=== PATIENT | female | born 1990 | race Caucasian/White ===

== ENCOUNTER 2018-01-31 13:25 | Emergency (ER) | payer OTHER, SELFPAY ==
[2018-01-31 13:28] VITALS: BP 130/67; PULSE 91; RESP 18; TEMP 37.2; O2SAT 100
--- NOTE | 2018-01-31 13:59 | W.ED.GENAD ---
Discharge Plan Disposition Patient Disposition: HOME Condition: Good Discharge Details Chief Complaint: Chest Pain Clinical Impression: Bronchitis Primary Care Provider: VALENTE PETERSON ED Provider: Francisco Desai Home Meds and New Rx's Prescriptions: New azithromycin 250 mg tablet 250 mg PO DAILY Qty: 4 RF: 0 prednisone 20 mg tablet 40 mg PO DAILY Qty: 8 RF: 0 Continue levonorgestrel [Mirena] 1 EACH intrauterine device 1 ea Intrauterine ONCE Qty: 1 RF: 0 multivitamin [Daily Multiple] 1 EACH tablet 1 ea PO DAILY RF: 0 Lactobacillus acidophilus [Probiotic] 1 EACH capsule 1 ea PO DAILY RF: 0 valacyclovir 500 MG tablet 500 mg PO DAILY Qty: 90 RF: 4 valacyclovir 1 gram tablet 1,000 mg PO BID Qty: 6 RF: 6 Discharge Instructions Instructions: Acute Bronchitis (ED) Additional Instructions: Return immediately to the emergency department if not improving in the next 24-48 hours. Otherwise take your medication as prescribed. Referrals: VALENTE PETERSON [Primary Care Provider] - Discharge Data Discharge Date/Time-TO BE ENTERED AT DEPARTURE: 01/31/18 16:25 Medical Decision Making Patient presenting to the emergency department for complaint of chest pain. Patient reports for the past 2 weeks she has had cough and cold symptoms. Beginning yesterday she started having mild left-sided chest pain that worsens with deep inspiration and cough. Today the pain continued and seem to slightly worsened. She does state more of a productive cough over the last 2 days as well. Patient denies any known fever but does state malaise. Nasal congestion. Patient's vital signs were reviewed and patient is oxygenating well with only very mild tachycardia. Plan to do radiological imaging of the chest for concern of possible pneumonia secondary to URI. Patient is otherwise stable. While ACS and PE are considered I feel that this is highly unlikely given patient's recent illness that seemed to worsen so mainly concern for infectious nature. We will continue to monitor and reassess. After review of radiological imaging that shows radiologist notation of mildly hyperinflated lungs consistent with possible reactive airway disease or deep inspiratory effect patient reassessed. Patient states no new or worsening symptoms and vital signs remained stable with heart rate seen in 80s and O2 saturation of 97-98%. Given this I am concerned for more of a bronchitis type situation but with patient being an intermittent smoker and worsening I do feel patient would benefit from antibiotic therapy as well. Given patient otherwise low risk patient placed upon azithromycin, prednisone 40 mg daily for a total of 5 days, and a inhaler. Patient was encouraged to return immediately for any new or worsening symptoms but otherwise I feel that patient is able to be safely discharged. After discussion of diagnosis and plan of care patient is no further needs, questions, or concerns and states clear understanding to return to the emergency department for any worsening symptoms. Patient does not have any local primary care provider and was offered to be placed on the list which she said that she does not want her primary care provider and would just return to the emergency department if she does not improve HPI General Mode of arrival: ambulatory. Date/Time Provider Initiated Documentation: 01/31/18 13:40. Limitations to Documentation: no limitations. Information obtained by: patient. History of Present Illness 27 year old F presents to the emergency department with the chief complaint of chest pain, described as moderate, with intensity rated at 7. Quality is described as aching, and is localized to the chest (left side). Patient reports radiation to back. Patient started experiencing this day(s) (2) and it has been constant. No relieving factors improve symptom(s), No exacerbating factors reported . Patient notes cough. Patient did receive the following treatments prior to arrival, none Related Data Home Medications Medication Instructions Recorded Confirmed levonorgestrel [Mirena] 1 ea INTRAUTERINE ONCE #1 implant 03/22/14 01/31/18 multivitamin [Daily Multiple] 1 ea PO DAILY 08/06/17 01/31/18 Lactobacillus acidophilus 1 ea PO DAILY 09/12/17 01/31/18 [Probiotic] valacyclovir 500 mg PO DAILY #90 tab-cap 12/19/17 01/31/18 valacyclovir 1 gram tablet 1,000 mg PO BID #6 tab-cap 01/30/18 01/31/18 azithromycin 250 mg PO DAILY #4 tab 01/31/18 prednisone 40 mg PO DAILY #8 tab 01/31/18 Previous Rx's Medication Instructions Recorded levonorgestrel [Mirena] 1 ea INTRAUTERINE ONCE #1 implant 03/22/14 valacyclovir 500 mg PO DAILY #90 tab-cap 12/19/17 valacyclovir 1 gram tablet 1,000 mg PO BID #6 tab-cap 01/30/18 azithromycin 250 mg PO DAILY #4 tab 09/29/18 prednisone 40 mg PO DAILY #8 tab 01/31/18 Allergies Allergy/AdvReac Type Severity Reaction Status Date / Time hydrocodone Allergy Severe severe Unverified 01/31/18 13:32 hives General Stated Complaint: Chest Pain OSMANY: 3 Review of Systems Constitutional Denies body ache(s), Denies chills, Denies fever(s), Denies headache(s) and Denies malaise Eyes Denies eye discharge ENT Denies headache(s), Reports nasal congestion, Denies neck pain and Denies throat swelling Cardiovascular Reports as per HPI, Reports chest pain and Reports dyspnea Respiratory Reports as per HPI, Reports chest congestion, Reports cough, Reports pain on inspiration, Reports pain with cough and Reports dyspnea Gastrointestinal Denies nausea and Denies vomiting Musculoskeletal Denies joint swelling and Denies neck pain Integumentary/Breasts Denies rash Neurologic Denies headache(s) Allergic/Immunologic Denies throat swelling PFSH Family History Mother Alcohol abuse Father Alcohol abuse Brother Alcohol abuse Medical History E-coli UTI Social History Smoking/Tobacco Use Status: Current-Occasional Surgical History section (01/20/14) Exam Const General: cooperative, comfortable and no acute distress Orientation: alert and awake [facility] Head: normal to inspection, normocephalic and atraumatic Ears: hearing grossly normal bilaterally and TM's normal bilaterally General nose exam: external nose normal Face and sinus: no erythema and sinus tenderness ethmoid and maxillary Mouth: oral mucosae normal, no drooling, no muffled voice and no trismus Throat: posterior oropharynx normal Neck Neck: normal visual inspection, full ROM, no lymphadenopathy, no meningeal signs, trachea midline and supple Chest Chest: tenderness (left side of chest wall) Resp Effort & Inspection: normal respiratory effort, able to speak in complete sentences and cough Quality of cough: dry Auscultation: clear to auscultation bilaterally Cardio Rate: regular rate Rhythm: regular rhythm Heart Sounds: S1 normal, S2 normal, normal S1 and S2, no click, no gallops, no murmurs and no rubs Skin General skin exam: no rashes or lesions noted and dry skin (warm) Neuro General: alert, awake, oriented x3, gait normal and moves all extremities Cognition: normal cognition Speech: speech normal Course Vital Signs Temperature 37.2 C 01/31/18 13:28 Pulse 91 H 01/31/18 13:28 Respiratory Rate 18 01/31/18 13:28 Blood Pressure 130/67 01/31/18 13:28 Pulse Oximetry 100 01/31/18 13:28 Temperature 37.2 C 01/31/18 13:28 Temperature Source Temporal Artery Scan 01/31/18 13:28 Pulse 91 H 01/31/18 13:28 Respiratory Rate 18 01/31/18 13:28 Respiratory Effort 01/31/18 13:45 Respiratory Depth Normal 01/31/18 13:45 Respiratory Pattern Normal 01/31/18 13:45 Blood Pressure 130/67 01/31/18 13:28 Pulse Oximetry 100 01/31/18 13:28 Oxygen Delivery Method Room Air 01/31/18 13:28 Oxygen Flow Rate 0 01/31/18 13:28 Pain Level 8 01/31/18 13:28
--- NOTE | 2018-01-31 14:02 | ED.GENADUL_ITS ---
Discharge Plan Disposition Patient Disposition: HOME Condition: Good Discharge Details Chief Complaint: Chest Pain Clinical Impression: Bronchitis Primary Care Provider: VALENTE PETERSON ED Provider: Francisco Desai Home Meds and New Rx's Prescriptions: New azithromycin 250 mg tablet 250 mg PO DAILY Qty: 4 RF: 0 prednisone 20 mg tablet 40 mg PO DAILY Qty: 8 RF: 0 Continue levonorgestrel [Mirena] 1 EACH intrauterine device 1 ea Intrauterine ONCE Qty: 1 RF: 0 multivitamin [Daily Multiple] 1 EACH tablet 1 ea PO DAILY RF: 0 Lactobacillus acidophilus [Probiotic] 1 EACH capsule 1 ea PO DAILY RF: 0 valacyclovir 500 MG tablet 500 mg PO DAILY Qty: 90 RF: 4 valacyclovir 1 gram tablet 1,000 mg PO BID Qty: 6 RF: 6 Discharge Instructions Instructions: Acute Bronchitis (ED) Additional Instructions: Return immediately to the emergency department if not improving in the next 24- 48 hours. Otherwise take your medication as prescribed. Referrals: VALENTE PETERSON [Primary Care Provider] - Discharge Data Discharge Date/Time-TO BE ENTERED AT DEPARTURE: 01/31/18 16:25 Medical Decision Making Patient presenting to the emergency department for complaint of chest pain. Patient reports for the past 2 weeks she has had cough and cold symptoms. Beginning yesterday she started having mild left-sided chest pain that worsens with deep inspiration and cough. Today the pain continued and seem to slightly worsened. She does state more of a productive cough over the last 2 days as well. Patient denies any known fever but does state malaise. Nasal congestion. Patient's vital signs were reviewed and patient is oxygenating well with only very mild tachycardia. Plan to do radiological imaging of the chest for concern of possible pneumonia secondary to URI. Patient is otherwise stable. While ACS and PE are considered I feel that this is highly unlikely given patient's recent illness that seemed to worsen so mainly concern for infectious nature. We will continue to monitor and reassess. After review of radiological imaging that shows radiologist notation of mildly hyperinflated lungs consistent with possible reactive airway disease or deep inspiratory effect patient reassessed. Patient states no new or worsening symptoms and vital signs remained stable with heart rate seen in 80s and O2 saturation of 97-98%. Given this I am concerned for more of a bronchitis type situation but with patient being an intermittent smoker and worsening I do feel patient would benefit from antibiotic therapy as well. Given patient otherwise low risk patient placed upon azithromycin, prednisone 40 mg daily for a total of 5 days, and a inhaler. Patient was encouraged to return immediately for any new or worsening symptoms but otherwise I feel that patient is able to be safely discharged. After discussion of diagnosis and plan of care patient is no further needs, questions, or concerns and states clear understanding to return to the emergency department for any worsening symptoms. Patient does not have any local primary care provider and was offered to be placed on the list which she said that she does not want her primary care provider and would just return to the emergency department if she does not improve HPI General Mode of arrival: ambulatory . Date/Time Provider Initiated Documentation: 01/31/18 13:40 . Limitations to Documentation: no limitations . Information obtained by: patient . History of Present Illness 27 year old F presents to the emergency department with the chief complaint of chest pain, described as moderate, with intensity rated at 7. Quality is described as aching, and is localized to the chest (left side). Patient reports radiation to back. Patient started experiencing this day(s) (2) and it has been constant. No relieving factors improve symptom(s), No exacerbating factors reported . Patient notes cough. Patient did receive the following treatments prior to arrival, none Related Data Home Medications Medication Instructions Recorded Confirmed levonorgestrel [Mirena] 1 ea INTRAUTERINE ONCE #1 implant 03/22/14 01/31/18 multivitamin [Daily Multiple] 1 ea PO DAILY 08/06/17 01/31/18 Lactobacillus acidophilus 1 ea PO DAILY 09/12/17 01/31/18 [Probiotic] valacyclovir 500 mg PO DAILY #90 tab-cap 12/19/17 01/31/18 valacyclovir 1 gram tablet 1,000 mg PO BID #6 tab-cap 01/30/18 01/31/18 azithromycin 250 mg PO DAILY #4 tab 01/31/18 prednisone 40 mg PO DAILY #8 tab 01/31/18 Previous Rx's Medication Instructions Recorded levonorgestrel [Mirena] 1 ea INTRAUTERINE ONCE #1 implant 03/22/14 valacyclovir 500 mg PO DAILY #90 tab-cap 12/19/17 valacyclovir 1 gram tablet 1,000 mg PO BID #6 tab-cap 01/30/18 azithromycin 250 mg PO DAILY #4 tab 09/29/18 prednisone 40 mg PO DAILY #8 tab 01/31/18 Allergies Allergy/AdvReac Type Severity Reaction Status Date / Time hydrocodone Allergy Severe severe Unverified 01/31/18 13:32 hives General Stated Complaint: Chest Pain OSMANY: 3 Review of Systems Constitutional Denies body ache(s), Denies chills, Denies fever(s), Denies headache(s) and Denies malaise Eyes Denies eye discharge ENT Denies headache(s), Reports nasal congestion, Denies neck pain and Denies throat swelling Cardiovascular Reports as per HPI, Reports chest pain and Reports dyspnea Respiratory Reports as per HPI, Reports chest congestion, Reports cough, Reports pain on inspiration, Reports pain with cough and Reports dyspnea Gastrointestinal Denies nausea and Denies vomiting Musculoskeletal Denies joint swelling and Denies neck pain Integumentary/Breasts Denies rash Neurologic Denies headache(s) Allergic/Immunologic Denies throat swelling PFSH Family History Mother Alcohol abuse Father Alcohol abuse Brother Alcohol abuse Medical History E-coli UTI Social History Smoking/Tobacco Use Status: Current-Occasional Surgical History section (01/20/14) Exam Const General: cooperative, comfortable and no acute distress Orientation: alert and awake [facility] Head: normal to inspection, normocephalic and atraumatic Ears: hearing grossly normal bilaterally and TM's normal bilaterally General nose exam: external nose normal Face and sinus: no erythema and sinus tenderness ethmoid and maxillary Mouth: oral mucosae normal, no drooling, no muffled voice and no trismus Throat: posterior oropharynx normal Neck Neck: normal visual inspection, full ROM, no lymphadenopathy, no meningeal signs , trachea midline and supple Chest Chest: tenderness (left side of chest wall) Resp Effort & Inspection: normal respiratory effort, able to speak in complete sentences and cough Quality of cough: dry Auscultation: clear to auscultation bilaterally Cardio Rate: regular rate Rhythm: regular rhythm Heart Sounds: S1 normal, S2 normal, normal S1 and S2, no click, no gallops, no murmurs and no rubs Skin General skin exam: no rashes or lesions noted and dry skin (warm) Neuro General: alert, awake, oriented x3, gait normal and moves all extremities Cognition: normal cognition Speech: speech normal Course Vital Signs Temperature 37.2 C 01/31/18 13:28 Pulse 91 H 01/31/18 13:28 Respiratory Rate 18 01/31/18 13:28 Blood Pressure 130/67 01/31/18 13:28 Pulse Oximetry 100 01/31/18 13:28 Temperature 37.2 C 01/31/18 13:28 Temperature Source Temporal Artery Scan 01/31/18 13:28 Pulse 91 H 01/31/18 13:28 Respiratory Rate 18 01/31/18 13:28 Respiratory Effort 01/31/18 13:45 Respiratory Depth Normal 01/31/18 13:45 Respiratory Pattern Normal 01/31/18 13:45 Blood Pressure 130/67 01/31/18 13:28 Pulse Oximetry 100 01/31/18 13:28 Oxygen Delivery Method Room Air 01/31/18 13:28 Oxygen Flow Rate 0 01/31/18 13:28 Pain Level 8 01/31/18 13:28
--- NOTE | 2018-01-31 14:20 | DI.RAD_ITS ---
SYMPTOM/DIAGNOSIS: COUGH, URI, LEFT SIDED CHEST JPAIN PA AND LATERAL CHEST: 01/31 The heart is normal in size. The lungs are clear. The mediastinal structures and pleura appear intact. CONCLUSION: Normal chest.
[2018-01-31 14:49] LABS: Bilirubin Negative (Negative); Blood Negative (Negative); Clarity Clear; Glucose Negative (Negative); Ketones Negative (Negative); Leukocyte Esterase Negative (Negative); Nitrite Negative (Negative); Urobilinogen 0.2 EU/dL (Up TO 0.2)
[2018-01-31 14:51] VITALS: BP 128/80; PULSE 86; RESP 16; TEMP 36.8; O2SAT 97
--- NOTE | 2018-01-31 14:51 | DI.VRAD_ITS ---
EXAM: XR Chest, 2 Views EXAM DATE/TIME: 01/31/2018 1:54 PM CLINICAL HISTORY: 27 years old, female; Signs and symptoms; Cough and other: Lt sided chest pain, uri TECHNIQUE: XR of the chest, 2 views. COMPARISON: No relevant prior studies available. FINDINGS: Lungs: Mildly hyperaerated lungs consistent with deep inspiratory effort vs mild reactive airway disease. Pleural space: Unremarkable. No pleural effusion. No pneumothorax. Heart/Mediastinum: Unremarkable. No cardiomegaly. Bones/joints: Idiopathic S-shaped scoliosis. Soft tissues: Metallic jewelry in the region of the umbilicus with or without metallic artifact. IMPRESSION: 1. Mildly hyperaerated lungs consistent with deep inspiratory effort vs mild reactive airway disease. 2. Idiopathic S-shaped scoliosis. Dictated and Authenticated by: Esa Kate MD. Ordering:MERRY VELASQUEZ MD
[2018-01-31] MEDS: Albuterol HFA 8 GM 60 PUFF INH IH (15:05)
[2018-01-31] MEDS: predniSONE 20 MG TAB 40 MG PO (15:06)
[2018-01-31] MEDS: Azithromycin 250 MG TAB 500 MG PO (15:06)
== END 2018-01-31 16:25 | disposition home or self-care (01) ==
PROVIDERS: Emergency Provider Nurse Practitioner Family
DX: J20.9 Acute bronchitis, unspecified (principal); F17.210 Nicotine dependence, cigarettes, uncomplicated
CPT/HCPCS: 81025; 93005; 99284; 71046; 81003; 93010; J7512

== ENCOUNTER 2018-06-26 17:27 | Outpatient (REF) | payer SELFPAY | END 2018-06-26 17:47 | LOC: LBN 17:27 | PROVIDERS: Visit Provider Nurse Practitioner Family | DX: R35.0 Frequency of micturition (principal) | CPT/HCPCS: 87077; 87086; 87186 ==

== ENCOUNTER 2018-12-14 10:24 | Emergency (ER) | payer MEDICAID, SELFPAY ==
[2018-12-14 10:26] VITALS: BP 121/76; PULSE 66; RESP 14; TEMP 37.2; O2SAT 99
--- NOTE | 2018-12-14 10:30 | W.ED.GENAD ---
Discharge Plan Disposition Patient Disposition: HOME Condition: Stable Discharge Details Chief Complaint: ThroatFB Clinical Impression: Dysphagia Primary Care Provider: None,None ED Provider: Martha Ngo Home Meds and New Rx's Prescriptions: New sucralfate 1 gram tablet See Rx Instructions .ROUTE .COMPLEX Qty: 12 RF: 0 Continued Mirena 1 EACH intrauterine device 1 ea Intrauterine ONCE Qty: 1 RF: 0 multivitamin [Daily Multiple] 1 EACH tablet 1 ea PO DAILY RF: 0 Probiotic 1 EACH capsule 1 ea PO DAILY RF: 0 valacyclovir 1 gram tablet 1,000 mg PO DAILY Qty: 90 RF: 4 valacyclovir 500 mg tablet 500 mg PO BID PRNQty: 10 RF: 3 lysine 1,000 mg Tablet 1,000 mg PO DAILY RF: 0 cranberry 500 mg Capsule 500 mg PO DAILY RF: 0 Discharge Instructions Instructions: Dysphagia (ED) Additional Instructions: Please return immediately to the emergency department if you develop any new or worsening symptoms or if you become otherwise concerned. It is extremely important that you call soon as possible to make an appointment to be seen in follow-up by her primary care doctor. It is also extremely important you attend your scheduled appointment with surgery on 12/16/2018 at 1:00 PM. Referrals: Yari Herrera DO [OSTEOPATHIC DOCTOR] - Discharge Data Discharge Date/Time-TO BE ENTERED AT DEPARTURE: 12/14/18 12:46 Medical Decision Making Oliver Alves is a 28 y/o woman without history of major medical problems who presented to the emergency department with retrosternal stabbing sensation worse with eating since swallowing pills 8 days ago. On exam patient is very well and nontoxic appearing. She is conversing normally and handling her secretions without issue. She is drinking water in the emergency department without issue. Benign abdominal exam. Exam/history is not consistent with esophageal foreign body, ACS, PE, aortic pathology, sepsis, acute emergent intra-abdominal process, other life-threatening etiology. Suspect pill esophagitis versus stricture versus other. Patient declined GI cocktail. I discussed the patient with Dr. Herrera of surgery at 1115. Awaiting callback for plan. Dr. Herrera evaluated patient in the emergency department, recommends sucralfate, discharge with outpatient EGD. Patient is scheduled for endoscopy 12/16 at 1:00. Lengthy discussion with patient regarding return to emergency department precautions, importance of outpatient follow-up as scheduled, home care. Patient verbalized understanding the plan was amenable. All questions were answered. Medical Records Medical records reviewed: Yes I reviewed the patient's medical records. HPI General Mode of arrival: ambulatory. Date/Time Provider Initiated Documentation: 12/14/18 10:30. Limitations to Documentation: no limitations. Information obtained by: patient, RN notes reviewed and old records reviewed. HPI Narrative: Oliver Alves is a 28-year-old woman with out reported history of major medical problems presenting to the emergency department with esophageal foreign body sensation. Patient reports that 8 days ago she took her usual vitamins and valacyclovir tablet when she developed a sensation in her chest as if a pill had not fully passed. Patient reports that sensation is stabbing in nature. She reports that it has been constant and unchanged other than with me since it began 8 days ago. Patient reports that she has been able to eat and drink as usual, however when she does eat or drink she has a sensation as if she becomes full early, and her pain does get worse with eating. Patient reports that she has been eating the same amount of food, but has to eat more slowly. After a meal her pain returns to the same chronic severity as it was at onset. Patient reports that she has been very active since onset of symptoms, exercising, going on [employer], and going about her usual daily activities without any worsening or remitting of the discomfort except as eating as above. She denies any other pain, cough, shortness of breath, vomiting, diarrhea, constipation. Feels well and otherwise in her usual state of health. Never had similar symptoms in the past. Related Data Home Medications Medication Instructions Recorded Confirmed Mirena 1 ea INTRAUTERINE ONCE #1 implant 03/22/14 12/14/18 multivitamin [Daily Multiple] 1 ea PO DAILY 08/06/17 12/14/18 Probiotic 1 ea PO DAILY 09/12/17 12/14/18 valacyclovir 1 gram tablet 1,000 mg PO DAILY #90 tab 12/01/18 12/14/18 cranberry 500 mg PO DAILY 12/14/18 12/14/18 lysine 1,000 mg PO DAILY 12/14/18 12/14/18 sucralfate See Rx Instructions .ROUTE 12/14/18 12/14/18 .COMPLEX #12 tab valacyclovir 500 mg tablet 500 mg PO BID PRN #10 tab 12/14/18 12/14/18 Previous Rx's Medication Instructions Recorded Mirena 1 ea INTRAUTERINE ONCE #1 implant 03/22/14 valacyclovir 1 gram tablet 1,000 mg PO DAILY #90 tab 12/01/18 sucralfate See Rx Instructions .ROUTE 12/14/18 .COMPLEX #12 tab valacyclovir 500 mg tablet 500 mg PO BID PRN #10 tab 12/14/18 Allergies Allergy/AdvReac Type Severity Reaction Status Date / Time hydrocodone Allergy Severe severe Unverified 12/14/18 15:43 hives General OSMANY: 3 Review of Systems Review of Systems Constitutional: denies fevers Eyes: denies eye pain ENT: denies facial pain, dental pain, sore throat Cardiovascular: Reports chest pain Respiratory: denies SOB, cough GI: denies vomiting, diarrhea, reports epigastric pain : denies flank pain MSK: denies back pain, neck pain, arthralgias, myalgias Skin: denies rash Neuro: denies headaches, numbness, weakness [facility] Medical History (Updated 12/14/18 @ 12:34 by Yari Herrera DO) Bartholin's gland abscess (Resolved ~09/2018) Dysphagia (Acute) E-coli UTI (Resolved ~2008) IUD (intrauterine device) in place (Chronic) Social History (Updated 09/27/18 @ 22:00 by Carmenza Shipley MD) Smoking/Tobacco Use Status: Former Tobacco Use Alcohol Intake: current Alcohol Intake frequency: 0-2 drinks per day Alcohol type: beer, wine and hard liquor Drug use: Current Sobriety Substance use type: does not use Household members: children Housing: apartment Number of Children: 1 Education Level: college Details: [employer] current occupation: Service desk at [employer] Do you feel safe at home: Yes Do you feel safe in your relationship?: Yes Additional Social history: 11/2013 primary delivery. Shashank Sanford Female Reproductive History Menstrual control method: progestin IUCD History History 1 Para Hx # Term Pregnancies 1 Multiple births Hx # Pregnancies Ectopic pregnancies AB induced Hx Number of Living Children 1 AB spontaneous Past Pregnancies Del. Date GA/Weeks # Outcome Route Wgt Sex Labor Lgth Anesthesia Location Prov Complic 11/19/13 41 No Successful 3.685 kg Male Delivery Date: 11/19/13 On 09/27/18 @ 22:04 Carmenza Shipley IOL 41.5w EGA. compound presentation. PCD Juvenal Exam Narrative Exam Narrative: Constitutional: well and [id number], pleasant, conversing normally HENT: head atraumatic/normocephalic/normal inspection, mucous membranes moist Eyes: conjunctiva normal, sclera normal, pupils 3mm b/l Neck: no stridor, normal ROM, trachea midline Chest: normal inspection Resp: normal work of breathing, LCTAB Cardio: normal rate, normal rhythm, no murmur appreciated, no tenderness to palpation of the chest GI: abdomen soft, non-tender, non-distended Back: normal inspection, no rash Skin: warm, dry, normal color, no rash Neuro: alert, not altered, grossly non-focal, normal tone Ext: no edema Psych: normal mood, normal affect, normal behavior
--- NOTE | 2018-12-14 12:27 | W.PM.HP.N ---
Date of service: 12/14/18 Time of Service: 12:27 Assessment and Plan (1) Dysphagia: Current visit: Yes Status: Acute Dysphagia/foreign body sensation. She doesn't have an active FB. She is able to eat and manage her secretions. Plan avoid cranberry until after scope Rx carfate plan egd on friday risk: bleeding/infection/peroration/aspiration/complications of anethesia. Continue with lifestyle modifications: try to avoid: alcohol, tobacco products, Aspirin or NSAID's (ibuprofen, Motrin, Naprosyn, aleve, etc), soda pop/any carbonated beverages, caffeine (including tea & chocolate), and acidic foods, (tomatoes, citrus, onions, peppermints) spicy or fried/fatty foods. Do not lie down for 30 minutes after eating, and do not eat 2 hours prior to bedtime. Avoid wearing tight fitting clothing/ belts History of Present Illness Chief Complaint: FB sensation in throat Consults Consult date: 12/14/18 Requesting physician: Martha Ngo Narrative: pt came into ED c/o FB sensation in throat. This has been on-going for the past 8 days. She denies any changes in meds/diet/lifestyle. She feels like she has a pill stuck in distal esoph. She has been able to eat and to manage her own secretions. No N/V. no true reflux s/s. no wt loss. she has not noted blood in her stools. She is not losing wt. She has not had in changes in her bowels. No chest pain or sob. no chronic cough. no hx of asthma. No Hx of dental issues. She denies feeling nausated. She does not take any stomach medsications or OTC heartburn aides. She drinks 1-2 cups of coffee daily. rare NSAID's. ETOH 1-3x/week. no soda or energy drinks. She does take cranberry extract for chronic UTI's. We will have her hold this until after the scope. Review of Systems Review of Systems All systems reviewed & are unremarkable except as noted in HPI and below Constitutional Reports as per HPI, Reports system reviewed and no additional complaints, except as docu, Denies anorexia, Denies chills, Denies difficulty sleeping, Denies fatigue, Denies headache(s), Denies lethargy, Denies malaise, Denies poor appetite, Denies weakness, Denies weight gain and Denies weight loss Eyes Reports as per HPI, Reports system reviewed and no additional complaints, except as docu and Denies change in vision ENT Reports system reviewed and no additional complaints, except as docu, Reports as per HPI, Denies change in voice, Denies dental pain, Reports dysphagia, Denies dizziness, Denies facial pain, Denies headache(s) and Denies odynophagia Cardiovascular Reports as per HPI, Reports system reviewed and no additional complaints, except as docu, Denies chest pain, Denies chest pain with activity, Denies syncope, Denies leg edema and Denies dyspnea Respiratory Reports as per HPI, Reports system reviewed and no additional complaints, except as docu, Denies chest congestion, Denies cough, Denies pain with cough and Denies dyspnea Gastrointestinal Reports as per HPI, Reports system reviewed and no additional complaints, except as docu, Denies abdominal pain, Denies bloating, Denies change in bowel habits, Denies change in stool character, Denies constipation, Denies cramping, Reports dysphagia, Denies early satiety, Denies heartburn, Denies diarrhea, Denies nausea, Denies odynophagia and Denies vomiting Musculoskeletal Reports system reviewed and no additional complaints, except as docu, Reports as per HPI, Denies abnormal gait, Denies arthralgias and Denies muscle weakness Integumentary/Breasts Reports system reviewed and no additional complaints, except as docu, Reports as per HPI, Denies changing lesions, Denies new lesions and Denies jaundice Neurologic Reports system reviewed and no additional complaints, except as docu, Reports as per HPI, Denies abnormal speech, Denies abnormal gait, Denies dizziness, Denies syncope, Denies headache(s), Denies memory loss and Denies weakness Psychiatric Reports system reviewed and no additional complaints, except as docu, Reports as per HPI, Denies change in appetite and Denies memory loss Endocrine Denies fatigue, Denies polydipsia and Denies polyuria Hematologic/Lymphatic Reports system reviewed and no additional complaints, except as docu, Denies easy bleeding and Denies easy bruising Allergic/Immunologic Denies system reviewed and no additional complaints, except as docu, Reports as per HPI and Denies urticaria [facility] Medical History Bartholin's gland abscess (Resolved ~09/2018) E-coli UTI (Resolved ~2008) IUD (intrauterine device) in place (Chronic) Surgical History (Updated 09/27/18 @ 21:57 by Carmenza Shipley MD) section (Resolved 01/20/14) History of facial surgery (Resolved) Social History (Updated 09/27/18 @ 22:00 by Carmenza Shipley MD) Smoking/Tobacco Use Status: Former Tobacco Use Alcohol Intake: current Alcohol Intake frequency: 0-2 drinks per day Alcohol type: beer, wine and hard liquor Drug use: Current Sobriety Substance use type: does not use Household members: children Housing: apartment Number of Children: 1 Education Level: college Details: [employer] current occupation: Service desk at [employer] Do you feel safe at home: Yes Do you feel safe in your relationship?: Yes Additional Social history: 11/2013 primary delivery. Shashank Sanford Female Reproductive History Menstrual control method: progestin IUCD History History 1 Para Hx # Term Pregnancies 1 Multiple births Hx # Pregnancies Ectopic pregnancies AB induced Hx Number of Living Children 1 AB spontaneous Past Pregnancies Del. Date GA/Weeks # Outcome Route Wgt Sex Labor Lgth Anesthesia Location Prov Complic 11/19/13 41 No Successful 3.685 kg Male Delivery Date: 11/19/13 On 09/27/18 @ 22:04 Carmenza Shipley IOL 41.5w EGA. compound presentation. ALVIN Fowler Home Medications Medication Instructions Recorded Confirmed Type Mirena 1 ea INTRAUTERINE ONCE #1 implant 03/22/14 12/14/18 Rx multivitamin [Daily Multiple] 1 ea PO DAILY 08/06/17 12/14/18 History Probiotic 1 ea PO DAILY 09/12/17 12/14/18 History valacyclovir 1 gram tablet 1,000 mg PO DAILY #90 tab 12/01/18 12/14/18 Rx cranberry 500 mg PO DAILY 12/14/18 12/14/18 History lysine 1,000 mg PO DAILY 12/14/18 12/14/18 History valacyclovir 500 mg tablet 500 mg PO BID PRN #10 tab 12/14/18 12/14/18 Rx Allergies Allergy/AdvReac Type Severity Reaction Status Date / Time hydrocodone Allergy Severe severe Unverified 12/14/18 10:50 hives Exam Const General: cooperative, healthy appearing, comfortable, no acute distress, well developed and well groomed Nutritional Appearance: average body habitus and well nourished Orientation: alert, awake and oriented x3 [facility] Head: normal to inspection, normocephalic and atraumatic Ears: hearing grossly normal bilaterally and external ears normal General nose exam: external nose normal Face and sinus: normal facial exam and sinuses nontender Mouth: oral mucosae normal, lip normal, tongue normal and moist mucous membranes Teeth and gingiva: dentition normal Eyes General: appearance normal, both eyes and all related structures Conjunctivae: conjunctivae normal Sclera: sclerae normal Pupils: PERRL Neck Neck: normal visual inspection and full ROM Chest Chest: normal inspection of the chest Resp Effort & Inspection: normal respiratory effort, able to speak in complete sentences, no cough, no nasal flaring, not tachypneic and no use of accessory muscles Auscultation: clear to auscultation bilaterally, no rales, no rhonchi and no wheezes Cardio Jugular venous pressure: no JVD Rate: regular rate Rhythm: regular rhythm GI Inspection: normal to inspection, no edema and non-distended Palpation: soft, no masses, nontender and No ascites Auscultation: normal bowel sounds Skin General skin exam: no rashes or lesions noted Trauma: no lacerations or abrasions Neuro General: alert, oriented x3, oriented, gait normal, moves all extremities, no focal motor deficits and CN's II-XI intact bilaterally Cognition: normal cognition Speech: speech normal Gait: normal gait Motor: muscle tone normal throughout Extrem General: normal to inspection, full ROM and no clubbing, cyanosis or edema Psych Appearance: grossly normal and well kempt Mental Status: mental status grossly normal Speech and Movement: speech and movement normal Affect: normal affect Results Last Vital Signs Temp 37.2 C 12/14/18 10:26 Pulse 66 12/14/18 10:26 Resp 14 12/14/18 10:26 BP 121/76 12/14/18 10:26 Pulse Ox 99 12/14/18 10:26
== END 2018-12-14 12:46 | disposition home or self-care (01) ==
PROVIDERS: Emergency Provider Student in an Organized Health Care Education/Training Program
DX: R13.10 Dysphagia, unspecified (principal)
CPT/HCPCS: 81025; 99222; 99283

== ENCOUNTER 2020-02-07 16:20 | Outpatient (REF) | payer MEDICAID, SELFPAY ==
--- NOTE | 2020-02-07 16:15 | PAPFT_PTH ---
PATIENT: Oliver Henriquez LOC: [facility] U#:[id number] AGE/SX: 29/F ROOM: RE02/07/[address]: Carmenza Shipley : 1990 BED: DIS: 02/07/2020 SPEC #: [id number] RECD: 02/07/20 17:03 STATUS: CHARY REVenancio #: [id number] STACIE: 02/07/20 16:[address]: Carmenza Shipley DEPT: [facility] Cytology RECD BY: Tasha Guajardo ENTERED: 02/07/20 17:04 SP TYPE: PAPFT OTHR DR: None Tissues: 1 - CX/ENDOCX FOR PAP SMEARS Procedures: PAP THIN PREP/[facility] Screening HPV DNA PROBE Comments: [id number]
[2020-02-08 15:40] LABS: Chlamydia Result Negative (Negative); GC Result Negative (Negative)
== END 2020-02-07 16:40 ==
LOC: LBN 16:20
PROVIDERS: Visit Provider Obstetrics & Gynecology Gynecology
DX: R87.610 Atypical squamous cells of undetermined significance on cytologic smear of cervix (ASC-US) (principal); R87.810 Cervical high risk human papillomavirus (HPV) DNA test positive
CPT/HCPCS: 87491; 87591; 88142; 87624

== ENCOUNTER 2020-02-29 16:53 | Outpatient (REF) | payer MEDICAID, SELFPAY ==
--- NOTE | 2020-02-29 16:30 | ENDO_PTH ---
PATIENT: Oliver Henriquez LOC: [facility] U#:[id number] AGE/SX: 29/F ROOM: RE02/29/[address]: Carmenza Shipley : 1990 BED: DIS: 02/29/2020 SPEC #: [id number] RECD: 02/29/20 17:19 STATUS: CHARY REQ #: [id number] STACIE: 02/29/20 16:[address]: Carmenza Shipley DEPT: Surgical Specimen RECD BY: Tasha Guajardo ENTERED: 02/29/20 17:20 SP TYPE: Endo OTHR DR: None Tissues: 1 - ENDOCERVICAL BX/CURRETTE 2 - CERVICAL BIOPSY 3 - CERVICAL BIOPSY Procedures: GROSS AND MICRO LEVEL 4 Comments: [id number]
== END 2020-02-29 17:13 ==
LOC: LBN 16:53
PROVIDERS: Visit Provider Obstetrics & Gynecology Gynecology
DX: N87.9 Dysplasia of cervix uteri, unspecified (principal); N72 Inflammatory disease of cervix uteri; R87.610 Atypical squamous cells of undetermined significance on cytologic smear of cervix (ASC-US); R87.810 Cervical high risk human papillomavirus (HPV) DNA test positive
CPT/HCPCS: 88305

== ENCOUNTER 2021-05-14 15:59 | Outpatient (REF) | payer BC, MEDICAID, SELFPAY ==
--- NOTE | 2021-05-14 15:30 | PAPFT_PTH ---
PATIENT: Oliver Henriquez LOC: [facility] U#:[id number] AGE/SX: 31/F ROOM: RE05/14/[address]: Carmenza Shipley : 1990 BED: DIS: 05/14/2021 SPEC #: [id number] RECD: 05/14/21 17:39 STATUS: CHARY REQ #: [id number] STACIE: 05/14/21 15:[address]: Carmenza Shipley DEPT: [facility] Cytology RECD BY: Tasha Guajardo ENTERED: 05/14/21 17:39 SP TYPE: PAPFT OT DR: Unknown,Unknown Tissues: 1 - CX/ENDOCX FOR PAP SMEARS Procedures: PAP THIN PREP/[facility] Screening Comments: [id number]
== END 2021-05-14 16:00 | disposition home or self-care (01) ==
LOC: LBN 15:59
PROVIDERS: Visit Provider Obstetrics & Gynecology Gynecology
DX: Z12.4 Encounter for screening for malignant neoplasm of cervix (principal)
CPT/HCPCS: 88142

== ENCOUNTER 2023-01-15 16:06 | Outpatient (REF) | payer BC, MEDICAID, SELFPAY ==
--- NOTE | 2023-01-15 16:00 | PAPFT_PTH ---
PATIENT: Oliver Henriquez LOC: [facility] U#:[id number] AGE/SX: 32/F ROOM: RE01/15/[address]: Carmenza Shipley : 1990 BED: DIS: 01/15/2023 SPEC #: [id number] RECD: 01/15/23 17:46 STATUS: CHARY REVenancio #: [id number] STACIE: 01/15/23 16:[address]: Carmenza Shipley DEPT: [facility] Cytology RECD BY: Tasha Guajardo ENTERED: 01/15/23 17:46 SP TYPE: PAPFT OT DR: Unknown,Unknown Tissues: 1 - CX/ENDOCX FOR PAP SMEARS Procedures: PAP THIN PREP/[facility] Screening HPV DNA PROBE Comments: [id number] (HPV 16 & 18/45)
== END 2023-01-15 16:07 | disposition home or self-care (01) ==
LOC: LBN 16:06
PROVIDERS: Visit Provider Obstetrics & Gynecology Gynecology
DX: Z12.4 Encounter for screening for malignant neoplasm of cervix (principal); R87.810 Cervical high risk human papillomavirus (HPV) DNA test positive; Z11.51 Encounter for screening for human papillomavirus (HPV)
CPT/HCPCS: 88142; 87624

== ENCOUNTER 2023-01-15 19:26 | Outpatient (CLI) | payer BC, SELFPAY ==
[2023-01-15 17:13] LABS: HCT 40.8 % (36.0-46.0); HGB 13.8 g/dL (11.2-15.7); MCH 32.6 pg (27.0-33.0); MCHC 33.8 % (32.0-36.0); MCV 97 fL (80-95); MPV 9.4 fL (8.0-11.0); Platelet Count 239 10^3/uL (130-400); RBC 4.23 10^6/uL (3.93-5.22); RDW-SD 42.6 fL; WBC 6.52 10^3/uL (4.4-10.8)
[2023-01-15 17:35] LABS: Anion Gap 6.3 mmol/L (3-11); BUN 18 mg/dL (7-18); C-Reactive Protein 0.17 mg/dL (0.0-0.3); CO2 29.7 mmol/L (21.0-32.0); CREATININE 0.9 mg/dL (0.55-1.02); Calcium 9.8 mg/dL (8.5-10.1); Chloride 100 mmol/L (98-107); Glucose 89 mg/dL (74-106); Potassium 3.9 mmol/L (3.5-5.1); Sodium 136 mmol/L (136-145); TSH (W/Ref FT4) 1.69 uIU/mL (0.36-3.74)
[2023-01-16 18:08] LABS: Rheumatoid Factor <8.6 IU/mL (<12.0)
[2023-01-17 09:40] LABS: Lyme Ab w Rflx to Lyme Confirm Negative (Negative)
[2023-01-17 15:36] LABS: dsDNA Ab, IgG <12.3 IU/mL (<30.0)
[2023-01-17 16:25] LABS: ANA Interpretation Negative (Negative)
[2023-01-18 22:02] LABS: Anaplasma phagocytophilum Negative (Negative); B. miyamotoi PCR Negative (Negative); Babesia divergens/MO-1 Negative (Negative); Babesia duncani Negative (Negative); Babesia microti Negative (Negative); Ehrlichia chaffeensis Negative (Negative); Ehrlichia ewingii/canis Negative (Negative); Ehrlichia muris eauclairensis Negative (Negative)
== END 2023-01-15 19:27 | disposition home or self-care (01) ==
LOC: LBO 19:27
PROVIDERS: Visit Provider Obstetrics & Gynecology Gynecology
DX: R52 Pain, unspecified (principal); R53.83 Other fatigue
CPT/HCPCS: 36415; 80048; 85027; 87798; 84443; 86038; 86140; 86225; 86431; 86618

== ENCOUNTER 2024-10-05 02:09 | Outpatient (CLI) | payer BC, SELFPAY ==
[2024-10-05 16:22] LABS: Abs Immature Grans 0.01 10^3/uL (0.0-0.06); Absolute Basophil Count 0.03 10^3/uL (0.0-0.2); Absolute Eosinophil Count 0.05 10^3/uL (0.0-0.7); Absolute Monocyte Count 0.51 10^3/uL (0.1-0.8); Absolute Neutrophil Count 4.81 10^3/uL (1.2-6.7); Basophils % 0.4 %; Eosinophils % 0.7 %; HCT 42.9 % (36.0-46.0); HGB 14.2 g/dL (11.2-15.7); Immature Grans % 0.1 %; MCH 32.4 pg (27.0-33.0); MCHC 33.1 % (32.0-36.0); MCV 98 fL (80-95); MPV 8.9 fL (8.0-11.0); Monocytes % 6.9 %; Neutrophils % 64.9 %; Platelet Count 214 10^3/uL (130-400); RBC 4.38 10^6/uL (3.93-5.22); RDW 11.9 % (11.7-14.6); RDW-SD 43.5 fL; WBC 7.41 10^3/uL (4.4-10.8)
[2024-10-05 17:26] LABS: ALT 23 U/L (14-59); AST 20 U/L (15-37); Albumin 4.2 g/dL (3.4-5.0); Alkaline Phosphatase 67 U/L (46-116); Anion Gap 7.9 mmol/L (3-11); BUN 30 mg/dL (7-18); Bilirubin, Total 0.3 mg/dL (0.2-1.0); CO2 29.1 mmol/L (21.0-32.0); CREATININE 0.9 mg/dL (0.55-1.02); Calcium 9.8 mg/dL (8.5-10.1); Chloride 101 mmol/L (98-107); Estimated GFR 87.11 (mL/min/1.73m2); Glucose 93 mg/dL (74-106); Potassium 3.9 mmol/L (3.5-5.1); Sodium 138 mmol/L (136-145); TSH (W/Ref FT4) 2.04 uIU/mL (0.36-3.74); Total Protein 7.8 g/dL (6.4-8.2)
[2024-10-06 18:18] LABS: Estradiol 69 pg/mL (See Note)
[2024-10-22 17:12] LABS: Testosterone, Free 1.12 ng/dL (<0.13-1.03); Testosterone, Total 38 ng/dL (8-60)
== END 2024-10-05 02:10 | disposition home or self-care (01) ==
LOC: LBO 02:10
PROVIDERS: Visit Provider Obstetrics & Gynecology
DX: L68.9 Hypertrichosis, unspecified (principal); R23.8 Other skin changes; N92.6 Irregular menstruation, unspecified; N92.0 Excessive and frequent menstruation with regular cycle
CPT/HCPCS: 36415; 80053; 84402; 84403; 82670; 84443; 85025